=== PATIENT | male | born 1985 | race Caucasian/White ===

== ENCOUNTER 2025-05-14 15:30 | Outpatient (CLI) | payer OTHER, SELFPAY ==
[2025-05-14 18:44] LABS: Basophils # 0.1 K/mm3 (0-0.2); Basophils % 0.7 % (0.1-2.0); Eosinophils # 0.2 Kmm3 (0.0-0.4); Hematocrit 45.4 % (42.0-52.0); Hemoglobin 14.8 g/dL (14.1-18.0); Immature Granulocytes # 0.01 10^3uL; Immature Granulocytes % 0.1 %; Lymphocytes # 1.9 K/mm3 (0.7-4.5); Lymphocytes % 25.7 % (10-50); Mean Corpuscular HGB Conc 32.6 g/dL (31.8-35.4); Mean Corpuscular Hemoglobin 28.6 pg (27.0-31.2); Mean Corpuscular Volume 87.8 fl (80-94); Mean Platelet Volume 10.1 fl (7.4-10.4); Monocytes # 0.6 K/mm3 (0.1-1.0); Monocytes % 7.8 % (1.7-9.3); Neutrophils # 4.6 K/mm3 (1.8-7.8); Neutrophils % 62.7 % (37.0-80.0); Nucleated Red Blood Cells # 0 10^3/uL; Nucleated Red Blood Cells % 0 %; Platelet Count 354 K/mm3 (142-424); Red Blood Count 5.17 M/mm3 (4.60-6.20); Red Cell Distribution Width-SD 38.9 fL; White Blood Count 7.3 K/mm3 (4.8-10.8)
[2025-05-14 19:52] LABS: Alanine Aminotransferase 11 U/L (12-78); Albumin Level 3.9 g/dl (3.5-5.0); Albumin/Globulin Ratio 1.6 (1.1-1.8); Alkaline Phosphatase 63 U/L (38-126); Anion Gap 9.4 mEq/L (5-15); Aspartate Amino Transferase 16 U/L (17-59); Bilirubin,Total 0.7 mg/dl (0.2-1.3); Blood Urea Nitrogen 6 mg/dl (9-20); Calcium 9.5 mg/dl (8.4-10.2); Carbon Dioxide 30 mmol/L (22.0-30.0); Chloride 100 mmol/L (98-107); Chol/HDL Ratio 6.3 (1-3.5); Cholesterol 196 mg/dl (140-200); Estimated Glomerular Filt Rate 94 ml/min (>60); GFR (African American) 114 ML/MIN (>60); Globulin 2.5 g/dL (1.3-3.2); Glucose 110 mg/dl (74-100); HDL Cholesterol 31 mg/dl (40-60); Potassium 4.4 mmoL/L (3.5-5.1); Sodium 135 mmol/L (136-145); Total Protein,Serum 6.4 g/dl (6.3-8.2); Triglycerides 145 mg/dl (30-150); VLDL Cholesterol 29 mg/dL (0-40)
[2025-05-14 20:04] LABS: Direct LDL Cholesterol 126.28 mg/dL (100-129)
[2025-05-14 20:19] LABS: Hemoglobin A1C 5.1 % (4.0-6.0)
[2025-05-14 20:33] LABS: Prostate Specific Ag, Diagnost 9.09 ng/ml (0.0-4.0); Thyroid Stimulating Hormone 5.58 uIU/mL (0.465-4.68)
== END 2025-05-14 23:59 | disposition home or self-care (01) ==
LOC: LAB.DROPOF 05-15 11:35
PROVIDERS: PCP Family Medicine; Visit Provider Family Medicine
DX: R39.89 Other symptoms and signs involving the genitourinary system (principal); Z76.89 Persons encountering health services in other specified circumstances
CPT/HCPCS: 80053; 80061; 82306; 83036; 84153; 84443; 85025